=== PATIENT | male | born 1975 | race Asian ===

== ENCOUNTER 2018-06-26 22:13 | Emergency (ER) | payer SELFPAY ==
[~2018-06-26] VITALS: Ht 167.6 cm; Wt 87.6 kg
[2018-06-26 22:26] VITALS: Ht 167.6 cm; Wt 87.6 kg
[2018-06-27] MEDS ORDERED: NAPR-985 PO (05:00)
[2018-06-27] MEDS ORDERED: IBUP-1542 PO (05:00)
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
[2018-06-27 05:40] VITALS: BP 145/89; PULSE 62; RESP 19
== END 2018-06-27 05:41 | disposition home or self-care (01) ==
LOC: FTE 22:13
DX: M25.512 Pain in left shoulder (principal); M54.2 Cervicalgia; M54.5 Low back pain; M25.562 Pain in left knee
CPT/HCPCS: 99282